=== PATIENT | female | born 1985 | race African-American/Black ===

== ENCOUNTER 2018-08-05 08:05 | Emergency (ER) | payer MEDICAID ==
[~2018-08-05] VITALS: Ht 167.6 cm; Wt 80.9 kg
[2018-08-05] MEDS ORDERED: PRENAVITE PO (08:21)
[2018-08-05] MEDS ORDERED: ACETAMINOPHEN 500 MG TABLET PO ONE (08:45)
[2018-08-05] MEDS ORDERED: ONDANSETRON HCL 4 MG TABLET PO ONE (08:45)
[2018-08-05] MEDS ORDERED: GuaiFENesin [SUGAR-FREE] 200 MG/10 ML SOLUTION UDCUP PO ONE (08:45)
[2018-08-05 09:17] VITALS: BP 100/68
== END 2018-08-05 09:33 | disposition home or self-care (01) ==
LOC: EMS 08:08
DX: O99.511 Diseases of the respiratory system complicating pregnancy, first trimester (principal); J06.9 Acute upper respiratory infection, unspecified; J40 Bronchitis, not specified as acute or chronic; O26.891 Other specified pregnancy related conditions, first trimester; R07.89 Other chest pain; Z3A.12 12 weeks gestation of pregnancy
CPT/HCPCS: Q0162